=== PATIENT | female | born 1975 | race Caucasian/White ===

== ENCOUNTER 2019-05-12 05:36 | Day surgery (SDC) | payer MEDICARE, MEDICAID ==
[2019-05-12] MEDS ORDERED: PROPOFOL 10 MG/ML VIAL IV ONE (05:37)
[2019-05-12] MEDS ORDERED: LIDOCAINE 2% MDV (20MG/ML) 20ML VIAL IV ONE (05:37)
[2019-05-12] MEDS ORDERED: FENTANYL PF 100MCG/2ML VIAL IV ONE (05:37)
[2019-05-12] MEDS ORDERED: MIDAZOLAM HCL 2MG/2ML VIAL IV ONE (05:37)
[2019-05-12] MEDS ORDERED: RINGERS SOLUTION,LACTATED 1,000 ML IV ONE ×2 (07:30→07:43)
[2019-05-12] MEDS ORDERED: BUPIVACAINE 0.5% W/EPI MPF 30 ML VIAL SQ ONE (07:39)
[2019-05-12] MEDS ORDERED: BUPIVACAINE 0.25% PF (2.5MG/ML) 10ML VIAL IM ONE ×2 (07:39)
[2019-05-12] MEDS ORDERED: DEXAMETHASONE PRESERVATIVE FREE 10MG/ML VIAL IM ONE (07:39)
[2019-05-12] MEDS ORDERED: LIDOCAINE 1% W/EPI 1:200,000 MPF 30ML SQ ONE (07:39)
[2019-05-12] MEDS ORDERED: 0.9 % SODIUM CHLORIDE 10 ML VIAL IJ ONE (07:39)
[2019-05-12] MEDS ORDERED: HYDROCODONE/APAP 7.5/325MG TABLET PO ONE (07:57)
--- NOTE | 2019-05-12 09:02 | Operative Note - [facility] ---
DATE OF SURGERY: 05/12/2019 PREOPERATIVE DIAGNOSIS: CERVICAL RADICULOPATHY, ICD-10 CODE M54.12. OPERATION: FLUOROSCOPICALLY GUIDED CERVICAL EPIDURAL INJECTION C6-C7. ANESTHESIA: Local sedation. ANESTHESIA PROVIDER: Jeffery Beard CRNA SURGEON: Duncan Seaman D.O. INDICATION: This patient presents with pain in neck, shoulder and arm. Diagnostics show a C4-C5, C5-C6, and C6-C7 disk abnormality. PROCEDURE: Intravenous line, vital sign monitoring, IV sedation, prepped and draped, sterile technique. Under imaging the cervical epidural interspace at C6-C7 was marked, infiltrated, 20-gauge 3-1/2 inch Tuohy needle, loss of resistance, 5 ml of 0.125% Marcaine with Dexamethasone was injected, needle removed, back of neck cleaned, Topical antibiotic. Sterile dressing applied. Will monitor and evaluate. JOB NUMBER: [id number] MTDD
== END 2019-05-12 08:13 | disposition home or self-care (01) ==
LOC: SUR 05:36
PROVIDERS: ATTEND Pain Medicine Interventional Pain Medicine
DX: M54.12 Radiculopathy, cervical region (principal); E11.9 Type 2 diabetes mellitus without complications; G62.9 Polyneuropathy, unspecified; F31.9 Bipolar disorder, unspecified; K21.9 Gastro-esophageal reflux disease without esophagitis; G25.0 Essential tremor; M06.9 Rheumatoid arthritis, unspecified
CPT/HCPCS: 36416; 82948; J7120

== ENCOUNTER 2019-06-30 06:17 | Day surgery (SDC) | payer MEDICARE, MEDICAID ==
[~2019-06-30 06:17] MED LIST: RINGERS SOLUTION,LACTATED 1,000 ML IV ONE
[2019-06-30] MEDS ORDERED: MIDAZOLAM HCL 2MG/2ML VIAL IV ONE (06:18)
[2019-06-30] MEDS ORDERED: LIDOCAINE 2% MDV (20MG/ML) 20ML VIAL IV ONE (06:18)
[2019-06-30] MEDS ORDERED: FENTANYL PF 100MCG/2ML VIAL IV ONE (06:18)
[2019-06-30] MEDS ORDERED: PROPOFOL 10 MG/ML VIAL IV ONE (06:18)
[2019-06-30] MEDS ORDERED: RINGERS SOLUTION,LACTATED 1,000 ML IV ONE (06:47)
[2019-06-30] MEDS ORDERED: LIDOCAINE 1% W/EPI 1:200,000 MPF 30ML SQ ONE (08:08)
[2019-06-30] MEDS ORDERED: BUPIVACAINE 0.5% W/EPI MPF 30 ML VIAL SQ ONE (08:08)
[2019-06-30] MEDS ORDERED: BUPIVACAINE 0.25% PF (2.5MG/ML) 10ML VIAL IM ONE (08:08)
[2019-06-30] MEDS ORDERED: DEXAMETHASONE PRESERVATIVE FREE 10MG/ML VIAL SQ ONE (08:09)
--- NOTE | 2019-06-30 08:46 | Operative Note - [facility] ---
DATE OF SURGERY: 06/30/2019 PREOPERATIVE DIAGNOSIS: CERVICAL RADICULOPATHY, ICD-10 CODE M54.12. OPERATION: FLUOROSCOPICALLY GUIDED CERVICAL EPIDURAL INJECTION C6-C7. SURGEON: Duncan Seaman D.O. ANESTHESIA: IV sedation. ANESTHESIA PROVIDER: Jeffery Beard CRNA INDICATION: This patient presents with pain which is neck, shoulder, and arm. Diagnostics do show diffuse spondylitic change with primary C6-C7 and C5-C6 disks. PROCEDURE: Intravenous line, vital sign monitoring, IV sedation, prepped and draped, sterile technique. Under imaging cervical epidural interspace C6-C7 marked, infiltrate, 20-gauge 3-1/2 inch Tuohy needle, loss of resistance. 5 ml of 0.125% Marcaine with Dexamethasone injected. Needle removed, neck cleaned, topical antibiotic, sterile dressing applied. Will monitor and evaluate. JOB NUMBER: [id number] MTDD
[2019-06-30] MEDS ORDERED: OXYCODONE/APAP 10MG-325MG TABLET PO ONE (08:47)
== END 2019-06-30 08:55 | disposition home or self-care (01) ==
LOC: SUR 06:17
PROVIDERS: ATTEND Pain Medicine Interventional Pain Medicine
DX: M54.12 Radiculopathy, cervical region (principal); E11.9 Type 2 diabetes mellitus without complications; G62.9 Polyneuropathy, unspecified; F31.9 Bipolar disorder, unspecified; K21.9 Gastro-esophageal reflux disease without esophagitis; M06.9 Rheumatoid arthritis, unspecified; E03.9 Hypothyroidism, unspecified
CPT/HCPCS: 62320; 01992; 36416; 82948; Q9967; J1100; J3010; J7120

== ENCOUNTER 2019-07-28 05:42 | Day surgery (SDC) | payer MEDICARE, MEDICAID ==
[2019-07-28] MEDS ORDERED: FENTANYL PF 100MCG/2ML VIAL IV ONE (05:43)
[2019-07-28] MEDS ORDERED: PROPOFOL 10 MG/ML VIAL IV ONE (05:43)
[2019-07-28] MEDS ORDERED: LIDOCAINE 2% MDV (20MG/ML) 20ML VIAL IV ONE (05:43)
[2019-07-28] MEDS ORDERED: MIDAZOLAM HCL 2MG/2ML VIAL IV ONE (05:43)
[2019-07-28] MEDS ORDERED: RINGERS SOLUTION,LACTATED 1,000 ML IV ONE (06:10)
[2019-07-28] MEDS ORDERED: LIDOCAINE 1% W/EPI 1:200,000 MPF 30ML SQ ONE ×2 (06:55→07:21)
[2019-07-28] MEDS ORDERED: BUPIVACAINE 0.5% W/EPI MPF 30 ML VIAL SQ ONE ×2 (06:55→07:21)
[2019-07-28] MEDS ORDERED: BUPIVACAINE 0.25% PF (2.5MG/ML) 10ML VIAL IM ONE ×2 (06:56→07:21)
[2019-07-28] MEDS ORDERED: DEXAMETHASONE PRESERVATIVE FREE 10MG/ML VIAL IV ONE ×2 (06:56→07:21)
[2019-07-28] MEDS ORDERED: HYDROCODONE/APAP 7.5/325MG TABLET PO ONE (07:44)
--- NOTE | 2019-07-28 08:20 | Operative Note - [facility] ---
DATE OF SURGERY: 07/28/2019 PREOPERATIVE DIAGNOSIS: CERVICAL SPONDYLOSIS WITHOUT MYELOPATHY, ICD-10 CODE M47.812. OPERATION: FLUOROSCOPICALLY GUIDED INFILTRATIONAL BLOCK BILATERAL CERVICAL FACETS C4-C5, C5-C6, AND C6-C7. SURGEON: Duncan Seaman D.O. ANESTHESIA PROVIDER: Jeffery Beard CRNA INDICATION: This patient presents with neck pain. Examination of the cervical spine shows range motion does cause pain in the neck with extension. Diagnostics showed diffuse multiple level spondylosis. Pain level currently 0- 10 is a 7. Her previous procedure which was the cervical facet technique did result in 50-75% relief. She is here for repeat to qualify for rhizotomy. PROCEDURE: Intravenous line, vital sign monitoring, IV sedation, prepped and draped, sterile technique. Under imaging cervical facet levels in the area of pain were identified and marked at C4-C5, C5-C6 and C6-C7, each one of these points under the skin were infiltrated with a 22-gauge 3-1/2 inch needle into the facet. 1 ml of 0.5% Marcaine and Dexamethasone injected. This was repeated at each of the sites bilaterally. All areas cleaned, topical antibiotic, sterile dressing applied. Will monitor and evaluate. JOB NUMBER: [id number] MTDD
== END 2019-07-28 07:58 | disposition home or self-care (01) ==
LOC: SUR 05:42
PROVIDERS: ATTEND Pain Medicine Interventional Pain Medicine
DX: M47.812 Spondylosis without myelopathy or radiculopathy, cervical region (principal); E11.9 Type 2 diabetes mellitus without complications; E03.9 Hypothyroidism, unspecified; G62.9 Polyneuropathy, unspecified; F31.9 Bipolar disorder, unspecified; G25.0 Essential tremor; K21.9 Gastro-esophageal reflux disease without esophagitis; Z79.4 Long term (current) use of insulin
CPT/HCPCS: J7120